=== PATIENT | male | born 1990 | race Caucasian/White ===

== ENCOUNTER 2016-11-06 16:57 | Emergency (ER) | payer MEDICAID ==
[2016-11-06 17:04] VITALS: RESP 16
[2016-11-06] MEDS ORDERED: NS 1,000 ML IV ONE (17:06)
--- NOTE | 2016-11-06 17:12 | EDPHY ---
H & P Stated Complaint: pcp & weed usage HPI/ROS: CHIEF COMPLAINT: Anxiety, palpitations, marijuana with PCP HISTORY OF PRESENT ILLNESS: Patient complains of palpitations and anxiety. He admits to smoking marijuana with PCP laced into it approximately 2 hours ago. He immediately felt anxious with palpitations. No chest pain. No shortness of breath. No paranoia or thoughts of harm or self-harm. Symptoms were persistent and he felt "that I was having a medical emergency." No modifying factors, thus he called 911. No other associated complaints or modifying factors. REVIEW OF SYSTEMS: Ten systems reviewed and are negative unless otherwise noted in the HPI PAST MEDICAL HISTORY: Denies any medical history SOCIAL HISTORY: Daily cannabis use. Denies alcohol or cigarette use FAMILY HISTORY: Noncontributory EXAMINATION General Appearance: Alert, no distress,, cooperative Head: normocephalic, atraumatic Eyes: Pupils equal and round, no conjunctival pallor or injection ENT, Mouth: Mucous membranes moist. Airway widely patent. Neck: Normal inspection, supple, non-tender Respiratory: Lungs are clear to auscultation. No wheezing, rhonchi or crackles Cardiovascular: Regular rate and rhythm. No murmur. Pulses intact distally Gastrointestinal: Abdomen is soft and nontender Back: non-tender, no bony abnormalities Neurological: GCS 15. A&O, nonfocal, normal gait. Strength is symmetric in all 4 limbs. No pronator drift. No dysmetria Skin: Warm and dry, no rash Extremities: Nontender, no pedal edema Psychiatric: Mood and affect normal. No anxiety. No fidgeting. No tremor. DIFFERENTIAL DIAGNOSES: Including but not limited to substance abuse, adverse drug reaction, anxiety, ACS, KS, A fib MDM: 5:05 p.m. Patient is feeling anxious he after smoking marijuana with PCP in it. He has had some palpitations but no chest pain. Vital signs are within normal limits. Patient does endorse using this combination of substances on a regular basis. This 1 feels abnormal to him. No shortness of breath. No abnormalities on examination. I have offered Ativan to help the symptoms but he is declining. I will obtain an EKG and continue monitoring. 5:55 p.m. EKG is unremarkable as interpreted by Dr. Hernandez. I re-evaluated the patient. He is resting comfortably. He is feeling better but not resolved. Still feeling some anxiety and palpitations. Vital signs remained stable. He is in no acute distress. He has agreed to take the Ativan IV. I will order this and monitor and recheck. 6:30 p.m. I have re-evaluated the patient. He is feeling much better after the Ativan. He would like to be discharged home. I do feel he is stable for discharge home. We discussed avoiding PCP. We discussed follow up with primary care physician. We discussed return to the emergency department for any chest pain of any kind. He is comfortable with this plan and discharged home stable condition SUPERVISION: Patient was evaluated in conjunction with the supervising physician. Please see their note for details. Source: Patient Exam Limitations: No limitations - Personal History Current Tetanus/Diphtheria Vaccine: Yes Current Tetanus Diphtheria and Acellular Pertussis (TDAP): Yes - Medical/Surgical History Hx Asthma: No Hx Chronic Respiratory Disease: No Hx Diabetes: No Hx Cardiac Disease: No Hx Renal Disease: No Hx Cirrhosis: No Hx Alcoholism: No Hx HIV/AIDS: No Hx Splenectomy or Spleen Trauma: No Other PMH: PMH- HTN, ALCHOLIC - Social History Smoking Status: Current some day smoker Constitutional: Initial Vital Signs Temperature (C) 97.9 F 11/06/16 17:00 Heart Rate 82 11/06/16 17:00 Respiratory Rate 16 11/06/16 17:00 Blood Pressure 135/73 H 11/06/16 17:00 O2 Sat (%) 98 11/06/16 17:00 O2 Delivery Mode Room Air Allergies/Adverse Reactions: No Known Allergies Allergy (Unverified 10/15/14 15:44) Home Medications: Medication Instructions Recorded NK [No Known Home Meds] 10/15/14 Medical Decision Making - Data Points Medications Given: Discontinued Medications Sodium Chloride (Ns) 1,000 mls @ 0 mls/hr IV ONCE ONE; Wide Open PRN Reason: Protocol Stop: 11/06/16 17:07 Last Admin: 11/06/16 17:20 Dose: 1,000 mls Lorazepam (Ativan Injection) 1 mg IVP EDNOW ONE Stop: 11/06/16 17:58 Last Admin: 11/06/16 18:01 Dose: 1 mg Departure - Departure Disposition: Home, Routine, Self-Care Clinical Impression: PCP (phencyclidine) abuse, Palpitations Adverse drug effect Qualifiers: Encounter type: initial encounter Qualified Code(s): T88.7XXA - Unspecified adverse effect of drug or medicament, initial encounter Condition: Good Instructions: Polysubstance Abuse (ED), Anxiety (ED) Additional Instructions: 1. Recommend refrain from using PCP 2. Follow up with primary care physician 3. Return to the ER for any chest pain or return of your anxiety symptoms Referrals: NONE *PRIMARY CARE P,. [Primary Care Provider] - As per Instructions Janell Yadav MD [Medical Doctor] - As per Instructions
--- NOTE | 2016-11-06 17:20 | CPEKG ---
Heart Rate: 74 RR Interval: 811 P-R Interval: 164 QRSD Interval: 112 QT Interval: 376 QTC Interval: 418 P Ledger: 84 QRS Ledger: 92 T Wave Ledger: 24 EKG Severity - ABNORMAL ECG - EKG Impression: SINUS RHYTHM EKG Impression: NONSPECIFIC INTRAVENTRICULAR CONDUCTION DELAY Electronically Signed By: Royer Anna 09-Nov-2016 06:22:37
[2016-11-06] MEDS ORDERED: LORazepam 2 MG/ML INJ IVP ONE (17:57)
[2016-11-06 18:02] VITALS: BP 135/72; PULSE 61; TEMP 97.3; O2SAT 100
== END 2016-11-06 18:41 | disposition home or self-care (01) ==
LOC: EDUNIT#
DX: R00.2 Palpitations (principal); F16.10 Hallucinogen abuse, uncomplicated; T88.7XXA Unspecified adverse effect of drug or medicament, initial encounter; I10 Essential (primary) hypertension; F17.200 Nicotine dependence, unspecified, uncomplicated; T50.905A Adverse effect of unspecified drugs, medicaments and biological substances, initial encounter; Y82.8 Other medical devices associated with adverse incidents
CPT/HCPCS: 96374; J2060